=== PATIENT | female | born 1990 | race Two or more races ===

== ENCOUNTER 2024-03-05 16:41 | Inpatient (IN) | payer OTHER ==
[~2024-03-05] VITALS: Ht 170.2 cm; Wt 1.8 kg
[2024-03-05] MEDS ORDERED: BETAMETHASONE ACETATE,SOD PHOS 30 MG/5 ML ML ONE (16:52)
[2024-03-05] MEDS ORDERED: MAGNESIUM SULFATE IN WATER 4 GM/100 ML PIGGYBACK IV ONE ×2 (16:53→17:30)
[2024-03-05] MEDS ORDERED: MAGNESIUM SULFATE IN WATER 0.04 GM/ML IV.SOLN IV ONE (16:54)
[2024-03-05 17:05] VITALS: BP 126/82
[2024-03-05] MEDS ORDERED: PRENATABS RX T1 EACH PO (17:20)
[2024-03-05] MEDS ORDERED: LEVOTHYROXINE25 MCG PO (17:21)
[2024-03-05] MEDS ORDERED: MAGNESIUM SULFATE IN WATER 500 ML IV SCH (17:30)
[2024-03-05] MEDS ORDERED: RINGERS SOLUTION,LACTATED 1,000 ML IV SCH (17:30)
[2024-03-05] MEDS ORDERED: BETAMETHASONE ACETATE,SOD PHOS 30 MG/5 ML ML IM SCH (17:30)
[2024-03-05 18:14] VITALS: BP 130/87
[2024-03-05 18:22] LABS: HEMATOCRIT 37.3 % (36.0-45.00); HEMOGLOBIN 12.5 g/dL (12.0-15.00); MEAN CELL VOLUME 92.6 fL (80.00-100.00); MEAN CORPUSCULAR HGB CONC 33.5 g/dl (32.0-36.0); PLATELET COUNT 292 K/uL (150-450); RED BLOOD COUNT 4.03 M/uL (4.00-6.00); RED CELL DISTRIBUTION WIDTH 13.7 % (11.5-14.5)
[2024-03-05 18:45] LABS: INR < 0.93; PARTIAL THROMBOPLASTIN TIME 25.3 SECONDS (22.0-34.0); PROTHROMBIN TIME 9.9 SECONDS (9.0-11.5)
[2024-03-05 18:50] LABS: ALBUMIN 2.5 gm/dL (3.4-5.0); BILIRUBIN TOTAL 0.22 mg/dL (0.3-1.2); CALCIUM 8.7 mg/dL (8.5-10.1); CREATININE SERUM 0.56 mg/dL (0.55-1.02); GFR 123.92; GLOBULINA 3.6 G/DL (2.4-3.5); POTASSIUM 3.82 mEq/L (3.5-5.1); TOTAL PROTEIN 6.1 gm/dL (6.4-8.2); URIC ACID 3.7 mg/dL (2.5-7.5)
[2024-03-05 19:29] VITALS: BP 115/78
[2024-03-05 20:04] VITALS: BP 130/91
[2024-03-05 23:17] VITALS: BP 113/77
[2024-03-06 03:59] VITALS: BP 116/76
[2024-03-06 07:11] VITALS: BP 124/77
[2024-03-06] MEDS ORDERED: RINGERS SOLUTION,LACTATED 1,000 ML IV SCH (09:15)
[2024-03-06 11:45] VITALS: BP 129/82
[2024-03-06 17:17] VITALS: BP 131/84
[2024-03-06] MEDS ORDERED: BETAMETHASONE ACETATE,SOD PHOS 30 MG/5 ML ML IM NR ×2 (17:30)
[2024-03-06 21:28] VITALS: BP 131/82
[2024-03-06 23:51] VITALS: BP 129/82
[2024-03-07] MEDS ORDERED: LEVOTHYROXINE SODIUM 25 MCG TABLET PO SCH (06:00)
[2024-03-07] MEDS ORDERED: LABETALOL HCL 200 MG TABLET PO NR (13:30)
[2024-03-07 14:30] VITALS: BP 142/89
[2024-03-07] MEDS ORDERED: CITRIC ACID/SODIUM CITRATE 30 ML BLIST.PACK PO STA (15:16)
[2024-03-07] MEDS ORDERED: CEFOXITIN SODIUM 2,000 MG VIAL IV STA (15:16)
[2024-03-07 15:35] VITALS: BP 149/77
[2024-03-07] MEDS ORDERED: OXYTOCIN 10 UNITS/ML VIAL IV ONE (17:30)
[2024-03-07] MEDS ORDERED: ERYTHROMYCIN BASE OPHT 1GM EACH TUBE OP ONE (17:30)
[2024-03-07] MEDS ORDERED: MAGNESIUM SULFATE IN WATER 0.04 GM/ML IV.SOLN IV ONE (17:53)
[2024-03-07] MEDS ORDERED: KETOROLAC TROMETHAMINE 30 MG VIAL ONE ×2 (18:33→20:59)
[2024-03-07] MEDS ORDERED: MORPHINE SULFATE 4 MG/ML VIAL IV ONE ×2 (18:40→19:50)
[2024-03-07] MEDS ORDERED: MAGNESIUM SULFATE IN WATER 0.04 GM/ML IV.SOLN IV SCH (18:45)
[2024-03-07] MEDS ORDERED: OXYTOCIN 10 UNITS/ML VIAL ONE (19:05)
[2024-03-07] MEDS ORDERED: CEFOXITIN SODIUM 2,000 MG VIAL IV ONE (19:26)
[2024-03-07] MEDS ORDERED: LABETALOL HCL 200 MG TABLET PO SCH (21:00)
[2024-03-07 21:50] LABS: HEMATOCRIT 37.2 % (36.0-45.00); HEMOGLOBIN 12.3 g/dL (12.0-15.00); MEAN CELL VOLUME 93.7 fL (80.00-100.00); MEAN CORPUSCULAR HEMOGLOBIN 30.9 pg (27.00-32.0); PLATELET COUNT 336 K/uL (150-450); RED BLOOD COUNT 3.97 M/uL (4.00-6.00); RED CELL DISTRIBUTION WIDTH 13.9 % (11.5-14.5)
[2024-03-07] MEDS ORDERED: KETOROLAC TROMETHAMINE 10 MG TABLET PO SCH (21:54)
[2024-03-07] MEDS ORDERED: SIMETHICONE 125 MG CAPSULE PO SCH (21:58)
[2024-03-07] MEDS ORDERED: PROMETHAZINE HCL 25 MG/ML AMPUL IM PRN (22:00)
[2024-03-07] MEDS ORDERED: RINGERS SOLUTION,LACTATED 1,000 ML IV SCH ×2 (22:00)
[2024-03-07] MEDS ORDERED: MEPERIDINE HCL/PF 25 MG/ML VIAL IM PRN (22:00)
[2024-03-07 22:09] VITALS: BP 158/96
[2024-03-08 00:20] VITALS: BP 146/90
[2024-03-08] MEDS ORDERED: CEFAZOLIN SODIUM 1,000 MG VIAL IV ONE (01:00)
[2024-03-08 04:40] VITALS: BP 132/86
[2024-03-08 06:28] LABS: HEMATOCRIT 35.1 % (36.0-45.00); HEMOGLOBIN 11.7 g/dL (12.0-15.00); MEAN CELL VOLUME 93.4 fL (80.00-100.00); MEAN CORPUSCULAR HEMOGLOBIN 31.2 pg (27.00-32.0); MEAN CORPUSCULAR HGB CONC 33.4 g/dl (32.0-36.0); PLATELET COUNT 288 K/uL (150-450); RED BLOOD COUNT 3.76 M/uL (4.00-6.00); RED CELL DISTRIBUTION WIDTH 13.9 % (11.5-14.5)
[2024-03-08 08:00] VITALS: BP 130/80
[2024-03-08] MEDS ORDERED: OxyCODONE HCL/APAP UD (PERCOCET) PO SCH (09:00)
[2024-03-08 16:02] VITALS: BP 131/84
[2024-03-09 00:51] VITALS: BP 130/89
[2024-03-09 08:24] VITALS: BP 137/96
[2024-03-09 14:23] VITALS: BP 122/84; O2SAT 97
[2024-03-09 15:51] VITALS: BP 112/77
[2024-03-09 19:00] VITALS: BP 108/64
[2024-03-10] VITALS: BP 130/82
[2024-03-10 08:08] VITALS: BP 122/84
[2024-03-10] MEDS ORDERED: LABETALOL HCL200 MG PO (09:36)
[2024-03-10] MEDS ORDERED: KETO10TA2 PO (09:36)
[2024-03-10] MEDS ORDERED: OXYC1TAB9 PO (09:37)
== END 2024-03-10 13:40 | disposition home or self-care (01) | DRG 786 ==
LOC: LDR 16:41 → OB/GYN 16:41
PROVIDERS: Obstetrics & Gynecology Maternal & Fetal Medicine; ADMIT Obstetrics & Gynecology; ATTEND Obstetrics & Gynecology
PROC: 4A1HXCZ Monitoring of Products of Conception, Cardiac Rate, External Approach (ICD-10-PCS; 2024-03-05)
PROC: 10D00Z1 Extraction of Products of Conception, Low, Open Approach (ICD-10-PCS; principal; 2024-03-07 17:15)
DX: O32.1XX0 Maternal care for breech presentation, not applicable or unspecified (principal); O60.14X0 Preterm labor third trimester with preterm delivery third trimester, not applicable or unspecified; O14.94 Unspecified pre-eclampsia, complicating childbirth; O13.4 Gestational [pregnancy-induced] hypertension without significant proteinuria, complicating childbirth; O36.5930 Maternal care for other known or suspected poor fetal growth, third trimester, not applicable or unspecified; Z3A.36 36 weeks gestation of pregnancy; Z37.0 Single live birth

== ENCOUNTER 2024-03-15 17:53 | Inpatient (IN) | payer OTHER ==
[~2024-03-15] VITALS: Ht 170.2 cm; Wt 90.7 kg
[2024-03-15 17:35] VITALS: BP 144/92
[~2024-03-15 17:53] MED LIST changes: -TRANDATE300 MG PO
[2024-03-15] MEDS ORDERED: MAGNESIUM SULFATE IN WATER 4 GM/100 ML PIGGYBACK IV SCH (18:15)
[2024-03-15] MEDS ORDERED: MAGNESIUM SULFATE IN WATER 500 ML IV SCH (18:15)
[2024-03-15 19:48] LABS: HEMATOCRIT 35.1 % (36.0-45.00); HEMOGLOBIN 11.8 g/dL (12.0-15.00); MEAN CELL VOLUME 92.1 fL (80.00-100.00); MEAN CORPUSCULAR HEMOGLOBIN 30.8 pg (27.00-32.0); MEAN CORPUSCULAR HGB CONC 33.5 g/dl (32.0-36.0); PLATELET COUNT 425 K/uL (150-450); RED BLOOD COUNT 3.81 M/uL (4.00-6.00); RED CELL DISTRIBUTION WIDTH 14.1 % (11.5-14.5)
[2024-03-15 20:10] LABS: ALBUMIN 2.8 gm/dL (3.4-5.0); BILIRUBIN TOTAL 0.23 mg/dL (0.3-1.2); CALCIUM 9.4 mg/dL (8.5-10.1); CREATININE SERUM 0.54 mg/dL (0.55-1.02); GFR 129.23; GLOBULINA 3.3 G/DL (2.4-3.5); POTASSIUM 4.29 mEq/L (3.5-5.1); TOTAL PROTEIN 6.1 gm/dL (6.4-8.2)
[2024-03-15 20:50] VITALS: BP 153/98
[2024-03-15] MEDS ORDERED: LABETALOL HCL 300 MG TABLET PO SCH (21:00)
[2024-03-15] MEDS ORDERED: RINGERS SOLUTION,LACTATED 1,000 ML IV SCH (23:00)
[2024-03-15 23:25] VITALS: BP 119/82
[2024-03-16 02:57] VITALS: BP 128/83
[2024-03-16 06:06] VITALS: BP 126/85; O2SAT 98
[2024-03-16] MEDS ORDERED: ACETAMINOPHEN 500 MG GEL..CAP PO PRN (06:15)
[2024-03-16] MEDS ORDERED: MAGNESIUM SULFATE IN WATER 0.04 GM/ML IV.SOLN IV ONE (07:18)
[2024-03-16] MEDS ORDERED: TRANDATE300 MG PO ×2 (07:35)
== END 2024-03-16 09:28 | disposition home or self-care (01) | DRG 776 ==
LOC: LDR 17:53
PROVIDERS: ADMIT Obstetrics & Gynecology Maternal & Fetal Medicine; ATTEND Obstetrics & Gynecology Maternal & Fetal Medicine
DX: O14.95 Unspecified pre-eclampsia, complicating the puerperium (principal); O16.5 Unspecified maternal hypertension, complicating the puerperium

== ENCOUNTER → 2024-03-15 | Emergency (ER) | payer OTHER ==
[~2024-03-15] VITALS: Ht 170.2 cm; Wt 90.7 kg
[~2024-03-15] MED LIST: KETO10TA2 PO; LABETALOL HCL200 MG PO; LEVOTHYROXINE25 MCG PO; OXYC1TAB9 PO; PRENATABS RX T1 EACH PO; TRANDATE300 MG PO
== END | disposition designated cancer center or children's hospital (05) ==
LOC: ER 14:37
DX: R53.81 Other malaise (principal); I10 Essential (primary) hypertension; Z91.013 Allergy to seafood

== ENCOUNTER 2024-03-17 21:59 | Inpatient (IN) | payer OTHER ==
[~2024-03-17] VITALS: Ht 170.2 cm; Wt 81.6 kg
[2024-03-17 21:50] VITALS: BP 142/98
[2024-03-17 21:51] VITALS: BP 155/93
[~2024-03-17 21:59] MED LIST changes: +TRANDATE300 MG PO
[2024-03-17] MEDS ORDERED: MAGNESIUM SULFATE IN WATER 4 GM/100 ML PIGGYBACK IV ONE (22:15)
[2024-03-17] MEDS ORDERED: RINGERS SOLUTION,LACTATED 1,000 ML IV SCH (22:15)
[2024-03-17] MEDS ORDERED: MAGNESIUM SULFATE IN WATER 500 ML IV SCH (22:30)
[2024-03-17 23:20] LABS: HEMATOCRIT 35.5 % (36.0-45.00); MEAN CELL VOLUME 93.1 fL (80.00-100.00); MEAN CORPUSCULAR HGB CONC 32.6 g/dl (32.0-36.0); PLATELET COUNT 417 K/uL (150-450); RED BLOOD COUNT 3.81 M/uL (4.00-6.00); RED CELL DISTRIBUTION WIDTH 13.7 % (11.5-14.5)
[2024-03-17 23:27] VITALS: BP 123/83
[2024-03-17 23:41] LABS: INR 1.01; PARTIAL THROMBOPLASTIN TIME 27.1 SECONDS (22.0-34.0)
[2024-03-17 23:43] LABS: HEMOGLOBIN 11.5 g/dL (12.0-15.00); MEAN CORPUSCULAR HEMOGLOBIN 30.1 pg (27.00-32.0)
[2024-03-17 23:56] LABS: ALBUMIN 2.9 gm/dL (3.4-5.0); BILIRUBIN TOTAL 0.27 mg/dL (0.3-1.2); CALCIUM 8.8 mg/dL (8.5-10.1); CREATININE SERUM 0.64 mg/dL (0.55-1.02); GFR 106.22; GLOBULINA 3.4 G/DL (2.4-3.5); POTASSIUM 4.16 mEq/L (3.5-5.1); TOTAL PROTEIN 6.3 gm/dL (6.4-8.2); URIC ACID 4.2 mg/dL (2.5-7.5)
[2024-03-18 01:15] LABS: PH,URINE 5.5 (5.0-8.0); URINE APPEARANCE Clear; URINE BILIRRUBIN Negative (NEGATIVE); URINE BLOOD Small; URINE COLOR Yellow; URINE GLUCOSE Negative (NEGATIVE); URINE KETONE Trace (NEGATIVE); URINE LEUKOCYTE Negative; URINE NITRATE Negative; URINE PROTEIN Negative (NEGATIVE); URINE UROBILINOGEN 0.2 E.U./dl
[2024-03-18 01:19] LABS: URINE BACTERIA 15.9 uL (0.0-1933); URINE WBC 2.3 uL (0.0-23.2)
[2024-03-18 01:47] LABS: URINE RBC 1.4 uL (0.0-20.8)
[2024-03-18 04:00] VITALS: BP 135/85
[2024-03-18 05:58] VITALS: BP 129/83; O2SAT 98
[2024-03-18] MEDS ORDERED: LEVOTHYROXINE SODIUM 25 MCG TABLET PO SCH (06:00)
[2024-03-18] MEDS ORDERED: LABETALOL HCL 300 MG TABLET PO SCH (09:00)
[2024-03-18 11:13] VITALS: BP 116/84; O2SAT 97
[2024-03-18] MEDS ORDERED: ACETAMINOPHEN 500 MG GEL..CAP PO ONE (13:29)
[2024-03-18] MEDS ORDERED: ACETAMINOPHEN 500 MG GEL..CAP PO PRN (13:45)
[2024-03-18 15:25] VITALS: BP 136/93
[2024-03-18] MEDS ORDERED: NIFEDIPINE 30 MG TAB.SA.OSM PO SCH (17:00)
[2024-03-18 19:53] VITALS: BP 132/91
[2024-03-18 22:55] VITALS: BP 109/74
[2024-03-19] VITALS (7 sets, daily range): BP systolic 112–130; BP diastolic 72–83; O2SAT 97
[2024-03-19] MEDS ORDERED: METHYLPREDNISOLONE SOD SUCC 125 MG VIAL ONE (20:55)
[2024-03-19] MEDS ORDERED: DIPHENHYDRAMINE HCL 50 MG/ML VIAL 1ML ONE (20:55)
[2024-03-20 03:27] VITALS: BP 128/77
[2024-03-20 07:45] VITALS: BP 130/93
[2024-03-20] MEDS ORDERED: NIFEDIPINE 30 MG TAB.SA.OSM PO SCH (09:00)
== END 2024-03-20 11:28 | disposition home or self-care (01) | DRG 776 ==
LOC: LDR 21:59
PROVIDERS: ADMIT Obstetrics & Gynecology Gynecology; ATTEND Obstetrics & Gynecology Gynecology
PROC: B020ZZZ Computerized Tomography (CT Scan) of Brain (ICD-10-PCS; principal; 2024-03-17)
DX: O16.5 Unspecified maternal hypertension, complicating the puerperium (principal)